=== PATIENT | female | born 1980 | race African-American/Black ===

== ENCOUNTER 2023-08-13 21:55 | Emergency (ER) | payer SELFPAY ==
[2023-08-13 22:29] VITALS: BP 158/104; PULSE 85; RESP 15; TEMP 98.9; BMI 29.5
[2023-08-14] MEDS ORDERED: DIPHTH,PERTUSS(ACELL),TET 0.5 ML DISP.SYRIN IM ONE ×2 (00:20)
[2023-08-14] MEDS: DIPHTH,PERTUSS(ACELL),TET 0.5 ML DISP.SYRIN IM ONE (00:20)
== END 2023-08-14 00:42 | disposition home or self-care (01) ==
LOC: JER 21:55
PROC: 3E0234Z Introduction of Serum, Toxoid and Vaccine into Muscle, Percutaneous Approach (ICD-10-PCS; principal; 2023-08-14)
DX: S01.21XA Laceration without foreign body of nose, initial encounter (principal); F10.129 Alcohol abuse with intoxication, unspecified; W19.XXXA Unspecified fall, initial encounter; Z23 Encounter for immunization
CPT/HCPCS: 70450-TC; 70486-TC; 71046-TC-FY; 72125-TC; 90715; 93005; 93010; 99285-25